=== PATIENT | female | born 1945 | race Caucasian/White ===

== ENCOUNTER 2018-02-02 07:40 | Day surgery (SDC) | payer OTHER, MEDICARE ==
[2018-01-31 14:09] VITALS: BMI 25.2
[~2018-02-02 07:40] MED LIST: BUPIVACAINE HCL/PF 0.5% (5MG/ML) 10 ML VIAL IJ ONE
[2018-02-02] MEDS ORDERED: MIDAZOLAM HCL 2 MG/2 ML SINGLE DOSE VIAL ONE (08:50)
--- NOTE | 2018-02-02 09:19 | HP ---
History & Physical Update - History History: No Change - Physical Physical: No Change - Assessment Assessment: No Change - Plan Plan: No Change (H & P on )
[2018-02-02] MEDS ORDERED: ceFAZolin SODIUM 1 GM VIAL IVPB ONE (09:34)
[2018-02-02] MEDS ORDERED: BUPIVACAINE HCL/PF 0.5% (5MG/ML) 10 ML VIAL IJ ONE (09:42)
[2018-02-02] MEDS ORDERED: BUPIVACAINE HCL/PF 0.5% (5MG/ML) 10 ML VIAL ONE (09:43)
--- NOTE | 2018-02-02 10:47 | SURG ---
Surgery Roller Skates Assembler Note Roller Skates Assembler: Zak Mcneal PA-C Date of Service: 02/02/18 Diagnosis: Umbilical hernia Procedure: Open umbilical hernia repair with mesh I was present for the entirety of the operative procedure. For further detail, please refer to operative report.
--- NOTE | 2018-02-02 10:49 | OP ---
Operative Note - Note: Operative Date: 02/02/18 Pre-Operative Diagnosis: Umbilical hernia Operation: Open Umbilical hernia repair with mesh Post-Operative Diagnosis: Same as Pre-op Surgeon: Tom Meadows Work Order Detailer: Zak Mcneal Anesthesia: General Estimated Blood Loss (mls): 5 Operative Report Dictated: Yes
[2018-02-02] MEDS ORDERED: oxyCODONE HCL 5 MG TABLET PO PRN (11:40)
[2018-02-02] MEDS ORDERED: ONDANSETRON 4 MG/2 ML VIAL IVPUSH PRN (11:40)
[2018-02-02] MEDS ORDERED: LACTATED RINGERS SOLUTION 1,000 ML IV SCH (11:45)
[2018-02-02 13:36] VITALS: TEMP 97.6
[2018-02-02] MEDS ORDERED: oxyCODONE HCL 5 MG TABLET ONE (13:39)
[2018-02-02 14:34] VITALS: BP 154/59; PULSE 61
--- NOTE | 2018-02-02 17:24 | OP ---
DATE OF OPERATION: 02/02/2018 PROCEDURE: Umbilical hernia repair with mesh and partial omentectomy. PREOPERATIVE DIAGNOSIS: Umbilical hernia with obstruction. POSTOPERATIVE DIAGNOSIS: Umbilical hernia with obstruction. SURGEON: Tom Meadows M.D. FRANCHISE MANAGER: Ignacio So ANESTHESIA: General by laryngeal mask airway FINDINGS ON PROCEDURE: This is a 72-year-old female who presents with chronic umbilical bulge, it is relatively asymptomatic. However, on exam has thin skin with an unreducible 4-cm bulge. So patient was advised elective umbilical hernia repair. Consent was obtained after discussion of the risks, benefits, and alternatives of the procedure. DESCRIPTION OF PROCEDURE: Patient was brought to the operating room and placed in supine position under general anesthesia by laryngeal mask airway was administered. The abdomen was prepped and draped in usual sterile fashion. Using 0.5% Marcaine, field block anesthesia was administered to the proposed incision site. Using scalpel blade number 15 and Bovie cautery, an S-shaped ellipse of skin was excised, to trim the redundant skin, and dissection was carried down to subcutaneous tissue. Further dissection using Bovie cautery was done to expose the incarcerated omentum. The omentum was carefully dissected down towards the neck of the hernia sac. The omentum was partially transected by serial clamping with hemostats and ligation with Polysorb 2-0 ligatures. The omental stump was then pushed back to the peritoneal cavity. A 2-cm defect was exposed, and the subcutaneous tissue was undermined using Bovie cautery. A medium size Ventralex ST mesh was deployed and its strap was sutured to the fascia usingg Prolene 0 suture. Two additional anchoring sutures were applied to reinforce the anchoring of the mesh. Afterwards the skin was further trimmed, and the wound was closed with interrupted Polysorb 3-0 suture for the dermis and continuous Biosyn 4-0 suture for the subcuticular layer. The wound closure was reinforced with Steri-Strips and covered with pressure dressing. The patient was successfully extubated and transferred to the post anesthesia care unit in satisfactory condition. Estimated blood loss was about 3 mL, wound class clean. The patient received a gram of Ancef prior to the start of the procedure. TOM MEADOWS M.D. LARISSA/[id number] MTDD
--- NOTE | 2018-02-06 16:10 | PATH ---
Surgical Pathology Report Patient Name: MARTINEZ VALADEZ [facility]. Rec. #: [id number] /Age/Gender: 1945 (Age: 72) / F Account: [id number] Location: [facility] SUR[facility] Taken: 02/02/2018 Received: 02/02/2018 Reported: 02/06/2018 Physicians: Tom Meadows M.D. Specimen(s) Received A: UMBILICAL SKIN B: HERNIA SAC Clinical History Umbilical hernia Final Diagnosis A. UMBILICAL SKIN, EXCISION: SKIN WITH SEBORRHEIC KERATOSIS. FRAGMENTS OF FIBROADIPOSE TISSUE WITH FOCAL MESOTHELIAL LINING, MILD CHRONIC INFLAMMATION, AND HISTIOCYTIC PROLIFERATION. B. HERNIA SAC, UMBILICAL HERNIA REPAIR: FIBROMEMBRANOUS TO FIBROADIPOSE TISSUE CONSISTENT WITH HERNIA SAC. Electronically Signed Mary Alice Schulz M.D. Gross Description A. Received in formalin labeled "umbilical skin," 3 griffiths portions of unoriented skin ranging from 3.0 x 1.2 cm to 4.5 x 1.8 cm. The medium portion displays underlying soft tissue. The epidermal surface of the medium portion displays a 0.5 x 0.3 cm raised pigmented lesion. The remaining 2 portions of skin are unremarkable. Producer Arborist Manager sections including the lesion are submitted in one cassette. B. Received in formalin labeled "hernia sac," is a 6.1 x 5.4 x 2.0 cm aggregate of griffiths escobedo portions of fibromembranous tissue and yellow, lobulated adipose tissue. Producer Arborist Manager sections are submitted in one cassette. /02/05/201802/05/2018
== END 2018-02-02 15:10 | disposition home or self-care (01) ==
LOC: JASU-SURG 07:40
PROVIDERS: ATTEND Surgery
PROC: 0WUF0JZ Supplement Abdominal Wall with Synthetic Substitute, Open Approach (ICD-10-PCS; principal; 2018-02-02 09:00)
DX: K42.0 Umbilical hernia with obstruction, without gangrene (principal)
CPT/HCPCS: 82962; 88302-TC; 88305-TC; 94760